=== PATIENT | female | born 1955 | race Caucasian/White ===

== ENCOUNTER → 2016-06-19 | Day surgery (SDC) | payer MEDICARE, BC ==
[~2016-06-19] MED LIST: ACETAMINOPHEN325 M1 PO; ACETAMINOPHEN650 M3 PO; ALBUTEROL MININEB NEB; AMBIEN PO; AMBIEN10 MG PO; AMITIZA8 MCG PO; AMITRIPTYLINE H25 MG PO; AMITRYPTYLINE PO; AVALIDE 300-251 TAB PO; CARDIZEM60 M1 PO; CIPRO250 M1 PO; CLONAZEPAM0.5 MG PO; CLONAZEPAM2 MG PO; COLACE PO; COMBIVENT U/D3 M1 INH; DILAUDID PO; DILAUDID4 M1 PO; ESCITALOPRAM OX20 MG PO; FLAGYL PO; FUROSEMIDE40 MG PO; GABAPENTIN300 M2 PO; HYDROMORPHONE HC4 MG PO; KADIAN PO; KADIAN100 MG PO; KCL PO; KLONOPIN PO; KLONOPIN1 MG PO; LASIX PO; LEVOFLOXACIN500 MG PO; LEXAPRO PO; LEXAPRO20 MG PO; LIPITOR PO; LISINOPRIL10 MG PO; LISINOPRIL20 MG PO; LISINOPRIL5 MG PO; LOMOTIL TABLET1 TAB PO; METFORMIN HCL500 M1 PO; METOPROLOL SUCC50 MG PO; METOPROLOL TAR100 MG PO; METOPROLOL TAR25 MG PO; METOPROLOL-HCTZ1 TA3 PO; MIRALAX17 GM PO; NEURONTIN300 MG PO; NEXIUM20 MG PO; NITROGLYCERIN0.4 MG SL; NORTRIPTYLINE H75 MG PO; NOVOLOG100 UNITS/; OMEPRAZOLE40 M1 PO; PAMELOR PO; PERCOCET PO; PHENERGAN PO; PHENERGAN25 MG PO; PROTONIX PO; PROTONIX20 MG PO; SIMVASTATIN20 MG PO; SYMBICORT 16010.2 GM INH; TRICOR PO; ZESTRIL40 MG PO; ZOFRAN PO; ZOFRANODT PO
--- NOTE | ~2016-06-19 | OR ---
Unit #: [id number] #: [id number] Patient: ALMA DERAS [id number] [address] [place], [place] [address] [id number] O MR#: [id number] NAME: ALMA DERAS. ROOM: Date of Procedure: 06/19/2016 Admission Date: 06/19/2016 Surgeon: Oneal Perez M.D. : 1955 Attending Physician: Oneal Perez M.D. Referring Physician: Oneal Perez M.D. Primary Care Physician: Tracee Kowalski M.D. OPERATIVE REPORT PREOPERATIVE DIAGNOSES The patient has come for colorectal cancer surveillance. She has personal history of colon cancer, status post resection and anastomosis. It is noteworthy that the patient had poor prep in the morning and was given additional prep, so the procedure has been done later in the evening. She is on multiple medications that would be responsible for colonic inertia. PROCEDURES PERFORMED Colonoscopy and ablation. POSTOPERATIVE DIAGNOSES 1. The patient has single medium-sized angiodysplasia or arteriovenous malformation in the cecum with characteristic appearance. This was ablated using argon plasma coagulation therapy at appropriate settings. 2. A end-to-side colocolic anastomosis in the area of the transverse colon. The anastomosis appeared healthy. 3. Rest of examination up to cecum was normal. The quality of prep was good. RECOMMENDATIONS Repeat colonoscopy in 2 years. SEDATION USED MAC. DESCRIPTION OF PROCEDURE Following detailed explanation of the potential risks and complications of a colonoscopy, namely perforation, bleeding, and complications related to sedation, the patient was brought to GI lab and laid in the left lateral decubitus position. A digital rectal examination was performed, which was normal. Lubricated tip of the Olympus video colonoscope was inserted through the anus and advanced under direct vision. The scope was advanced and passed up to sigmoid into descending colon. No diverticula were seen in this area. The scope was then navigated into the area of the transverse colon. There, end-to-side colonic to colonic anastomosis was seen. The anastomosis appeared healthy. The scope tip was then navigated all the way up to cecum with visualization of the ileocecal valve and the appendiceal orifice. Preparation was excellent with good visualization and photodocumentation was obtained. Successive segments of the colonic mucosa were examined upon withdrawal. A single angiodysplasia or arteriovenous malformation was seen in the cecum with a characteristic reddish appearance and circumscribed margins and fern-like appearance. It Unit #: [id number] #: [id number] Patient: ALMA DERAS was about a 1 cm in size. The latter was ablated using argon plasma coagulation therapy at standard settings. Excellent hemostasis was achieved and photodocumentation was obtained. The patient did not have any polyps, nor any diverticula, or hemorrhoids. She tolerated the procedure without any postprocedure complications. Dictated by... Dasha Thornton/rashad TD: 06/20/2016 03:56 JOB #: [id number] OPERATIVE REPORT X Oneal Perez MD X PROCEDURE OPERATIVE NOTE
== END | disposition home or self-care (01) ==
LOC: COPS 11:38
DX: K55.20 Angiodysplasia of colon without hemorrhage (principal); Z85.038 Personal history of other malignant neoplasm of large intestine; Z90.49 Acquired absence of other specified parts of digestive tract; E11.9 Type 2 diabetes mellitus without complications; F17.200 Nicotine dependence, unspecified, uncomplicated; Z87.891 Personal history of nicotine dependence; M19.90 Unspecified osteoarthritis, unspecified site; Z88.0 Allergy status to penicillin; Z88.5 Allergy status to narcotic agent; Z88.8 Allergy status to other drugs, medicaments and biological substances; Z88.2 Allergy status to sulfonamides; Z88.6 Allergy status to analgesic agent
CPT/HCPCS: 82947; J2250

== ENCOUNTER → 2016-08-31 | Outpatient (CLI) | payer MEDICARE, BC ==
--- NOTE | ~2016-08-31 | CT4 ---
[facility] A Service of [facility] RADIOLOGY TEXT RESULTS PATIENT: ALMA DERAS [facility] : 53 UNIT #: [id number] AGE: [address]: Andriy Tracy MD SEX: F ORDER DR: [id number] [facility]. [place], [place] [address] [id number] O MR#: [id number] Acc #: [id number] NAME: ALMA DERAS. : 1955 SEX: F STUDY DATE/TIME: 08/31/2016 16:48 [facility] ROOM: STUDY DESCRIPTION: CT Abd and Pelv Wo Cont Attending Physician: Andriy Tracy M.D. Referring Physician: Andriy Tracy M.D. Ordering Physician: Andriy Tracy M.D. Primary Care Physician: Tracee Kowalski M.D. MEDICAL IMAGING REPORT This report is preliminary unless electronic signature is present EXAM CT of the abdomen and pelvis of oral contrast only INDICATION Abdominal pain, epigastric swelling for 6 days. History of colon cancer and partial colectomy. TECHNIQUE CT of the abdomen and pelvis was performed with oral contrast only. Coronal and sagittal reformatted images were obtained. Comparison is made with PET/CT from 05/15/2016. This CT exam was performed with one or more of the following radiation dose reduction techniques: automatic exposure control, adjustment of mA and/or kV according to patient size, and iterative reconstruction. FINDINGS The lung bases are clear. The liver is unremarkable. Cholecystectomy. The spleen is unremarkable. The kidneys, adrenal glands and pancreas are unremarkable. There is no evidence of ascites or suspicious lymphadenopathy. There is no evidence for bowel obstruction. PELVIS: Postoperative changes of the colon. There is no free fluid in the pelvis. Hysterectomy. Remainder of the pelvis is unremarkable. The bone windows demonstrate degenerative changes of the lumbar spine. IMPRESSION 1. No evidence for metastatic disease. 2. No CT findings to explain the patient's symptoms. Dictated by... [facility] A Service of [facility] RADIOLOGY TEXT RESULTS PATIENT: ALMA DERAS LOCATION: [facility] : 53 UNIT #: [id number] AGE: [address]: Andriy Tracy MD SEX: F ORDER DR: Arthur Fry M.D. THIS IS AN ELECTRONICALLY VERIFIED REPORT Arthur Fry M.D. at 09/02/2016 9:46 AM CLAUDINE/lionel TD: 09/01/2016 10:07 JOB #: [id number] MEDICAL IMAGING REPORT Page 1 of 1 COPY
[2016-08-31 17:06] LABS: POC - CREATININE 0.84 mg/dL (0.44-1.03); POC - GFR >60.0 mL/min (>60)
== END | disposition home or self-care (01) ==
LOC: CCAT 15:20
PROVIDERS: Internal Medicine Hematology & Oncology
DX: R19.06 Epigastric swelling, mass or lump (principal)
CPT/HCPCS: 74176; 82565

== ENCOUNTER → 2016-12-07 | Outpatient (CLI) | payer MEDICARE, BC ==
--- NOTE | ~2016-12-07 | CR184 ---
[facility] A Service of [facility] & [facility] RADIOLOGY TEXT RESULTS PATIENT: ALMA DERAS LOCATION: [facility] : 53 UNIT #: [id number] AGE: [address]: Tracee Kowalski MD SEX: F ORDER DR: [id number] [facility] [address] [facility]. [place], [place] [address] [id number] O MR#: [id number] Acc #: [id number] NAME: ALMA DERAS : 1955 SEX: F STUDY DATE/TIME: 12/07/2016 13:01 UNIT: [facility] ROOM: STUDY DESCRIPTION: CR Lumbar Spine Min 4 Views Attending Physician: Tracee Kowalski M.D. Referring Physician: Tracee Kowalski M.D. Ordering Physician: Tracee Kowalski M.D. Primary Care Physician: Tracee Kowalski M.D. MEDICAL IMAGING REPORT This report is preliminary unless electronic signature is present EXAM Lumbar series 12/07/2016 INDICATIONS 61-year-old female with low back pain, pain in the neck and low back radiating across the hands and upward. Symptoms for a couple of weeks. No known injury. Back pain. TECHNIQUE Frontal, bilateral oblique, lateral and cone-down lateral views performed. Correlation is made with CT 08/31/2016. FINDINGS The bones are osteopenic. The oblique views are markedly degraded by nonstandard positioning. There is minimal antegrade listhesis of L4 with respect to L5 and L3, grade I in degree. This measures 3 mm. This is probably related to facet arthropathy and degenerative disc disease. There is at least mwvu-pr-kqjtwxrb facet arthropathy at L5 and L5-S1. No compression fracture. Atherosclerotic changes are present in the aorta. Dystrophic calcifications project posterior to the sacrum on the lateral view and are nonspecific. IMPRESSION 1. Osteopenia with degenerative changes at L4-5 and L5-S1 primarily related to facet arthropathy. Grade I antegrade listhesis of L4 on L5 probably relates to degenerative change. 2. No acute fracture. 3. Atherosclerotic disease. STS. [facility] A Service of [facility] & [facility] RADIOLOGY TEXT RESULTS PATIENT: ALMA DERAS LOCATION: [facility] #: [id number] : 53 UNIT #: [id number] AGE: [address]: Tracee Kowalski MD SEX: F ORDER DR: Dictated by... Wilmar Mendosa M.D. THIS IS AN ELECTRONICALLY VERIFIED REPORT Wilmar Mendosa M.D. at 12/08/2016 3:10 PM ALIN/miladis TD: 12/07/2016 19:30 JOB #: [id number] MEDICAL IMAGING REPORT Page 1 of 1 COPY
--- NOTE | ~2016-12-07 | CR61 ---
[facility] A Service of [facility] RADIOLOGY TEXT RESULTS PATIENT: ALMA DERAS LOCATION: [facility] : 53 UNIT #: [id number] AGE: [address]: Tracee Kowalski MD SEX: F ORDER DR: [id number] [facility]. [place], [place] [address] [id number] O MR#: [id number] Acc #: [id number] NAME: ALMA DERAS : 1955 SEX: F STUDY DATE/TIME: 12/07/2016 13:13 UNIT: [facility] ROOM: STUDY DESCRIPTION: CR Cervical Spine Min 5 Views Attending Physician: Tracee Kowalski M.D. Referring Physician: Tracee Kowalski M.D. Ordering Physician: Tracee Kowalski M.D. Primary Care Physician: Tracee Kowalski M.D. MEDICAL IMAGING REPORT This report is preliminary unless electronic signature is present EXAM Five views cervical spine. DATE 12/07/2016 HISTORY 61-year-old female with chronic neck pain, chronic mid back pain, pain in the neck and lower back radiating across the back and upwards for a couple of weeks. No known injury. COMPARISON None. FINDINGS AP, right oblique, left oblique, AP and odontoid views were obtained. There is moderate diminished disc height with endplate sclerosis and anterior and posterior osteophyte formation at C5-6. Remainder of the disc levels maintain normal height. No fracture. No subluxation. Craniocervical junction is intact. Suspected mild to moderate bony neural foraminal narrowing bilaterally at C5-6, left greater than right. Suspected right greater than left carotid bulb calcifications. Lung apices appear clear. No abnormal prevertebral soft tissue swelling. IMPRESSION 1. Moderate diminished disc height with anterior and posterior osteophyte formation, and probable kfoo-ms-kkanrjrm bilateral neural foraminal narrowing at the C5-6 level. 2. No acute cervical spine findings. [facility] A Service of [facility] RADIOLOGY TEXT RESULTS PATIENT: ALMA DERAS LOCATION: [facility] : 53 UNIT #: [id number] AGE: [address]: Tracee Kowalski MD SEX: F ORDER DR: Dictated by... Addie Armando M.D. THIS IS AN ELECTRONICALLY VERIFIED REPORT Addie Armando M.D. at 12/08/2016 8:54 AM [facility]/miladis TD: 12/07/2016 20:00 JOB #: [id number] MEDICAL IMAGING REPORT Page 1 of 1 COPY
--- NOTE | ~2016-12-07 | CR243 ---
[facility] A Service of [facility] RADIOLOGY TEXT RESULTS PATIENT: ALMA DERAS [id number] 53 UNIT #: [id number] AGE: [address]: Tracee Kowalski MD SEX: F ORDER DR: [id number] [id number] [place], [place] [address] [id number] O MR#: [id number] Acc #: [id number] NAME: ALMA DERAS : 1955 SEX: F STUDY DATE/TIME: 12/07/2016 13:01 UNIT: [facility] ROOM: STUDY DESCRIPTION: CR Thoracic Spine 3 Views Attending Physician: Tracee Kowalski M.D. Referring Physician: Tracee Kowalski M.D. Ordering Physician: Tracee Kowalski M.D. Primary Care Physician: Tracee Kowalski M.D. MEDICAL IMAGING REPORT This report is preliminary unless electronic signature is present EXAMINATION Three views of the thoracic spine. DATE 12/07/2016 HISTORY 61-year-old female with pain in the neck and the lower back radiating across the back and upwards for a couple of weeks. No known injury. COMPARISON None. FINDINGS No fracture. No subluxation. Small marginal osteophytes are present at T6 through T12. Disc space height appears fairly well maintained. No osteolytic or osteoblastic abnormalities identified. IMPRESSION 1. Mild marginal osteophyte formation in the vvb-ca-ijhdb thoracic spine. No acute findings. Dictated by... Addie Armando M.D. THIS IS AN ELECTRONICALLY VERIFIED REPORT Addie Armando M.D. at 12/08/2016 8:54 AM TERRENCE/hosea TD: 12/07/2016 19:51 JOB #: [id number] [facility] A Service [facility] RADIOLOGY TEXT RESULTS PATIENT: ALMA DERAS [facility] [id number] : 53 UNIT #: [id number] AGE: [address]: Tracee Kowalski MD SEX: F ORDER DR: MEDICAL IMAGING REPORT Page 1 of 1 COPY
== END | disposition home or self-care (01) ==
LOC: CRAD 12:35
DX: M54.5 Low back pain (principal); G89.29 Other chronic pain; M54.6 Pain in thoracic spine; M54.2 Cervicalgia; M25.78 Osteophyte, vertebrae; M85.88 Other specified disorders of bone density and structure, other site; M47.896 Other spondylosis, lumbar region; M43.16 Spondylolisthesis, lumbar region; I70.0 Atherosclerosis of aorta
CPT/HCPCS: 72050; 72072; 72110

== ENCOUNTER 2016-12-26 14:10 | Emergency (ER) | payer MEDICARE, BC ==
[~2016-12-26] VITALS: Ht 160 cm; Wt 104.3 kg
--- NOTE | ~2016-12-26 | CR2 ---
[facility] A Service of [facility] RADIOLOGY TEXT RESULTS PATIENT: ALMA DERAS LOCATION: [facility] : 53 UNIT #: [id number] AGE: [address]: Chinyere David MD SEX: F ORDER DR: [id number] [facility] [address] [place], [place] [address] [id number] E MR#: [id number] Acc #: [id number] NAME: ALMA DERAS : 1955 SEX: F STUDY DATE/TIME: 12/26/2016 16:46 UNIT: [facility] ROOM: STUDY DESCRIPTION: CR Abdomen Acute Series Attending Physician: Chinyere David M.D. Ordering Physician: Chinyere David M.D. Primary Care Physician: Tracee Kowalski M.D. MEDICAL IMAGING REPORT This report is preliminary unless electronic signature is present EXAM Acute abdomen series, 12/26/2016 HISTORY 61-year-old female with nausea, abdominal pain, and constipation for 3 days. COMPARISON Abdomen x-rays 12/29/2015. CT abdomen and pelvis 08/31/2016. FINDINGS Frontal chest and 5 flat and upright views of the abdomen were performed. 6 total images. The lungs and pleural spaces are clear. No pneumothorax. Heart size and mediastinum are normal. Pulmonary vasculature normal. The bowel gas pattern is nonobstructive. No free intraperitoneal air. Moderate stool burden in the colon. No gross pathologic calcifications identified projecting over the renal shadows or expected courses either ureter. No acute bony abnormality. IMPRESSION No acute chest or abdominal findings. Moderate stool burden. Dictated by... Gary Simon M.D. THIS IS AN ELECTRONICALLY VERIFIED REPORT Gary Simon M.D. at 12/27/2016 10:11 AM BAKARI/edwina [facility] A Service [facility] RADIOLOGY TEXT RESULTS PATIENT: ALMA DERAS LOCATION: [facility] : 53 UNIT #: [id number] AGE: [address]: Chinyere David MD SEX: F ORDER DR: TD: 12/27/2016 03:58 JOB #: [id number] MEDICAL IMAGING REPORT Page 1 of 1 COPY
--- NOTE | ~2016-12-26 | CT4 ---
[facility] A Service of [facility] RADIOLOGY TEXT RESULTS PATIENT: ALMA DERAS LOCATION: [facility] : 54 UNIT #: [id number] AGE: [address]: Chinyere David MD SEX: F ORDER DR: [id number] [facility] [address] [place], [place] [address] [id number] E MR#: [id number] Acc #: [id number] NAME: ALMA DERAS : 1955 SEX: F STUDY DATE/TIME: 12/26/2016 19:38 UNIT: [facility] ROOM: STUDY DESCRIPTION: CT Abd and Pelv Wo Cont Attending Physician: Chinyere David M.D. Ordering Physician: Chinyere David M.D. Primary Care Physician: Tracee Kowalski M.D. MEDICAL IMAGING REPORT This report is preliminary unless electronic signature is present EXAM CT scan of the abdomen and pelvis without contrast 12/26/2016 HISTORY Right flank pain for 3 days and generalized abdominal pain with constipation, diabetes and hypertension. TECHNIQUE Spiral CT was performed through the abdomen and pelvis following oral contrast administration only as per clinician request. This CT examination was performed with one or more of the following radiation dose reduction techniques: automatic exposure control, adjustment of mA and/or kV according to patient size, and iterative reconstruction. FINDINGS ABDOMEN: The exam is limited by the lack of intravenous contrast. The liver, spleen, pancreas, adrenal glands and kidneys are normal. The gallbladder is not visualized. It is presumed surgically absent. Clinical correlation and correlation with patient history is suggested. PELVIS: There is a large amount of fecal matter in the colon. There are postsurgical changes within the transverse colon. No bowel obstruction is seen. There is no significant adenopathy and there is no free fluid in the abdomen or pelvis. The lung bases are normal. IMPRESSION 1. Examination is limited by the lack of intravenous contrast. 2. Probable fatty infiltration of the liver. 3. The gallbladder is not visualized. It is presumed surgically absent. Correlation with patient history is suggested. 4. Postsurgical changes involving the midline of the anterior abdominal wall with postoperative changes involving the mid transverse colon. Large amount of fecal matter in the colon. No evidence of bowel STS. [facility] A Service of [facility] RADIOLOGY TEXT RESULTS PATIENT: ALMA DERAS LOCATION: [facility] : 53 UNIT #: [id number] AGE: [address]: Chinyere David MD SEX: F ORDER DR: obstruction. Dictated by... Christopher Redding M.D. THIS IS AN ELECTRONICALLY VERIFIED REPORT Christopher Redding M.D. at 12/27/2016 10:39 AM ALYX/steffi TD: 12/27/2016 07:06 JOB #: [id number] MEDICAL IMAGING REPORT Page 1 of 1 COPY
[2016-12-26 15:17] LABS: URINE SOURCE CLEAN CATCH
[2016-12-26 15:20] LABS: BASOPHIL# 0.1 X10e3 (0-0.3); BASOPHIL% 0.8 % (0-2.5); EOSINOPHIL# 0.2 X10e3 (0-0.7); HEMATOCRIT 37.1 % (35.0-45.0); HEMOGLOBIN 11.7 gm/dL (12.0-16.0); LYMPHOCYTE# 3.8 X10e3 (1.0-3.5); LYMPHOCYTE% 34.7 % (17.0-45.0); MEAN CELL VOLUME 85.9 FL (83-96); MEAN CORPUSCULAR HEMOGLOBIN 27.2 PG (28-34); MEAN CORPUSCULAR HGB CONC 31.6 g/dL (30-36); MEAN PLATELET VOLUME 7.5 FL (6.5-11.5); MONOCYTE# 0.9 X10e3 (0-1.0); MONOCYTE% 8.3 % (3.0-12.0); NEUTROPHIL# 5.9 X10e3 (1.5-7.1); NEUTROPHIL% 54.2 % (40-75); PLATELET COUNT 340 X10e3 (140-420); RED BLOOD COUNT 4.32 X10e (3.90-5.30); RED CELL DISTRIBUTION WIDTH 16.2 % (11.0-15.5); WHITE BLOOD COUNT 10.9 X10e3 (4.0-10.5)
[2016-12-26 15:22] LABS: DIFF IND NO
[2016-12-26 15:23] LABS: URINE APPEARANCE CLEAR; URINE BLOOD 1+ (NEG); URINE COLOR DK YELLOW; URINE GLUCOSE NEG (NEG); URINE KETONE NEG (NEG); URINE LEUKOCYTE ESTERASE TRACE (NEG); URINE NITRATE POS (NEG); URINE PROTEIN NEG (NEG); URINE SPECIFIC GRAVITY 1.017 (1.003-1.035)
[2016-12-26 15:27] LABS: CULTURE INDICATED? YES; URINE BACTERIA AUWI 1+ (NEGATIVE); URINE SQUAMOUS EPITHELIAL CELL OCC /[HPF]
[2016-12-26 15:36] LABS: URINE BILIRUBIN NEG (NEG)
[2016-12-26 15:52] LABS: BILIRUBIN, DIRECT 0.1 mg/dL (0.0-0.2); BILIRUBIN,INDIRECT 0.1 mg/dL (0.0-0.9); BILIRUBIN,TOTAL 0.2 mg/dL (0.2-2.0); BUN/CREATININE RATIO 25.71; CALCIUM SERUM 9.1 mg/dL (8.4-10.2); CREATININE SERUM 0.7 mg/dL (0.6-1.4); GLOM FILT RATE Estimated 92.9 mL/min (>60); POTASSIUM 5.1 mmol/L (3.5-5.1); PROTEIN TOTAL SERUM 7.7 g/dL (6.0-8.3)
== END 2016-12-26 20:35 | disposition home or self-care (01) ==
LOC: CED 14:10
DX: R10.9 Unspecified abdominal pain (principal); Z88.2 Allergy status to sulfonamides; Z88.0 Allergy status to penicillin; Z88.6 Allergy status to analgesic agent; Z88.8 Allergy status to other drugs, medicaments and biological substances
CPT/HCPCS: 36415; 74022; 74176; 80048; 80076; 81003; 83690; 85025; 87086; 96372; 99284; J1170; J2270; J2405